=== PATIENT | male | born 1950 | race American Indian/Alaskan Native ===

== ENCOUNTER 2020-04-06 07:43 | Day surgery (SDC) | payer MEDICARE ==
[2020-04-06] MEDS ORDERED: SODIUM CHLORIDE 0.9% 500 ML 500 ML IV SCH (09:00)
[2020-04-06 09:16] LABS: Hemoglobin 14.1 gm/dl (11.8-15.2); Mean Corpuscular HGB Conc 34 % (32-34); Mean Corpuscular Volume 95 fl (84-94); Platelet Count 214 K/mm3 (140-440); Red Blood Count 4.41 M/mm3 (3.65-5.03); Red Cell Distribution Width 13.8 % (13.2-15.2)
[2020-04-06] MEDS ORDERED: fentaNYL 100 MCG/2 ML INJ ONE (09:26)
[2020-04-06] MEDS ORDERED: HEPARIN/NS 5000 UNIT/500ML 0 ML IR ONE (09:26)
[2020-04-06] MEDS ORDERED: HEPARIN 10,000 UNITS/10 ML VIAL ONE (09:26)
[2020-04-06] MEDS ORDERED: NITROGLYCERIN SYRINGE 0 ML ONE (09:27)
[2020-04-06 09:28] LABS: BUN/Creatinine Ratio 19; Blood Urea Nitrogen 15 mg/dL (9-20); Calcium 8.5 mg/dL (8.4-10.2); Hemolysis Index 2
[2020-04-06 09:40] LABS: INR 1.04 (0.87-1.13); Partial Thromboplastin Time 25.7 Sec. (24.2-36.6)
[2020-04-06] MEDS ORDERED: HEPARIN/NS 5000 UNIT/500ML 500 ML IR ONE (10:21)
[2020-04-06] MEDS ORDERED: LIDOCAINE (2%) 20 MG/1 ML VIAL 20 ML MDV INFILTRATI ONE ×2 (10:21→12:23)
[2020-04-06] MEDS ORDERED: SODIUM CHLORIDE 0.9% 500 ML 500 ML ONE (10:21)
[2020-04-06] MEDS ORDERED: MIDAZOLAM 2 MG/2 ML INJ ONE (10:22)
[2020-04-06] MEDS ORDERED: HEPARIN/NS 5000 UNIT/500ML 1,000 ML IR ONE ×2 (10:58→12:08)
[2020-04-06] MEDS: MIDAZOLAM 2 MG/2 ML INJ ONE ×5 (11:09→14:03)
[2020-04-06] MEDS: LIDOCAINE (2%) 20 MG/1 ML VIAL 20 ML MDV INFILTRATI ONE ×2 (11:11→11:53)
[2020-04-06] MEDS: fentaNYL 100 MCG/2 ML INJ ONE ×5 (11:29→14:03)
[2020-04-06] MEDS ORDERED: VERAPAMIL 5 MG/2 ML INJ ONE (11:38)
[2020-04-06] MEDS ORDERED: NITROGLYCERIN SYRINGE 3 ML ONE (11:38)
[2020-04-06] MEDS: HEPARIN 10,000 UNITS/10 ML VIAL ONE ×3 (11:58→12:49)
[2020-04-06] MEDS: VERAPAMIL 5 MG/2 ML INJ ONE ×2 (11:58→12:00)
--- NOTE | 2020-04-06 14:50 | Short Stay Summary ---
Short Stay Documentation Date of service: 04/06/20 Narrative H&P: See H&P - History H&P: obtained from office - Allergies and Medications Current Medications: Allergies penicillin Allergy (Verified 10/17/14 22:55) Hives Sulfa (Sulfonamide Antibiotics) Allergy (Verified 10/17/14 22:55) Hives Home Medications Medication Instructions Recorded Confirmed Last Taken Type traMADoL [Ultram 50 MG tab] 50 mg PO Q6HR PRN #14 tablet 11/01/14 04/06/20 04/04/20 Rx 50 mg AtorvaSTATin [Lipitor] 40 mg PO QHS 04/06/20 04/06/20 04/04/20 History 1 tab Cyproheptadine [Periactin] 4 mg PO BID 04/06/20 04/06/20 04/04/20 History 1 tab Linaclotide [Linzess] 145 mcg PO QDAY 04/06/20 04/06/20 04/05/20 History 1 tab tiZANidine [Zanaflex 4mg TAB] 4 mg PO DAILY 04/06/20 04/06/20 04/04/20 History 1 tab Active Medications Sodium Chloride (Nacl 0.9% 500 Ml) 500 mls @ 50 mls/hr IV DIRECT SPIKE - Brief post op/procedure progress note Date of procedure: 04/06/20 Pre-op diagnosis: PVD and 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 Ultrasound-Guided Access Right Common Femoral Artery 2. Ultrasound-Guided Access Left Common Femoral Artery 3. Ultrasound-Guided Access Left Radial Artery 4. Angioplasty and Stent of Infrarenal Aorta With 11 x 59 Viabahn VBX Balloon Expandable Stent Graft And 14 x 40 Jasper Balloon 5. Angioplasty and Stent of Left Common Iliac Artery with 8 x 79 Viabahn VBX and 8 x 29 Viabahn VBX Balloon Expandable Stent Grafts 6. Angioplasty and Stent of Right Common Iliac Artery with 8 x 79 Viabahn VBX and 8 x 39 Viabahn VBX Balloon Expandable Stent Grafts Postdilated with a 12 x 20 EverCross Balloon 7. Closure of Left Femoral Arteriotomy with Pro-Antimony Closure Device 8. Closure of Right Femoral Arteriotomy with Pro-Antimony Closure Device 9. Radiologic Supervision with Interpretation 10. Monitored Moderate Sedation (Total Anesthesia Time: 180 Minutes) Anesthesia: local, other (Monitored Moderate Sedation) Surgeon: DYLLAN LEWIS Automatic N[employer] Machine Operator: SANJEEV DAVIDSON Estimated blood loss: minimal Pathology: none Condition: stable - Disposition Condition at discharge: Good Disposition: DC-01 TO HOME OR SELFCARE Short Stay Discharge Plan Activity: other (No strenuous activity for 24 hours.) Wound: remove dressing (In 24 hours. Okay to shower and wash the wound with soap and water but do not soak in water for 2 weeks.) Follow up with: DYLLAN LEWIS MD [Staff Physician] - 14 Days Prescriptions: HYDROcodone/APAP 5-325 [Emerson 5/325] 1 each PO Q4HR PRN #30 tablet PRN Reason: Pain Clopidogrel [Plavix] 75 mg PO QDAY #90 tablet
[2020-04-06] MEDS ORDERED: HYDROcodone/ACETAMINOPHEN 5-325 MG TAB PO PRN (15:00)
--- NOTE | 2020-04-06 15:03 | Operative Report ---
Operative Report Operative Report: Date of Procedure: 04/06/2020 Pre-operative Diagnosis: Peripheral Vascular Disease with Aortoiliac Occlusive D isease and Aneurysmal Disease Post-operative Diagnosis: Same Procedure(s): 1. Ultrasound-Guided Access Right Common Femoral Artery 2. Ultrasound-Guided Access Left Common Femoral Artery 3. Ultrasound-Guided Access Left Radial Artery 4. Angioplasty and Stent of Infrarenal Aorta With 11 x 59 Viabahn VBX Balloon Expandable Stent Graft And 14 x 40 Lamar Balloon 5. Angioplasty and Stent of Left Common Iliac Artery with 8 x 79 Viabahn VBX and 8 x 29 Viabahn VBX Balloon Expandable Stent Grafts 6. Angioplasty and Stent of Right Common Iliac Artery with 8 x 79 Viabahn VBX and 8 x 39 Viabahn VBX Balloon Expandable Stent Grafts Postdilated with a 12 x 20 EverCross Balloon 7. Closure of Left Femoral Arteriotomy with Pro-Silsbee Closure Device 8. Closure of Right Femoral Arteriotomy with Pro-Silsbee Closure Device 9. Radiologic Supervision with Interpretation 10. Monitored Moderate Sedation (Total Anesthesia Time: 180 Minutes) Surgeon: Saul Mccall M.D. Author'S Agent: Marshal Cowan M.D. 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 He is in need of intervention to relieve his symptoms. He was given the risk, benefits, and alternative procedures and consented to the procedure. Angiographic Findings: As previously noted the aortogram reveals tapering of distal aorta with approximately 50% stenosis however there is evidence of a calcified aneurysm. His left common iliac artery is occluded with reconstitution at the distal common iliac artery just above the bifurcation. There is no evidence of flow- limiting stenosis in the hypogastric artery or external iliac artery. The the right common iliac artery has a 99% stenosis in the mid artery. The hypogastric artery and external iliac arteries are patent without evidence of flow-limiting stenosis. At the completion of the case the aorta is patent with less than 10% residual stenosis and no evidence of endoleak. The left common iliac artery is patent with less than 10% residual stenosis and brisk flow of contrast into the distal vessels. The right common iliac artery is patent however there was flow into what appears to be mural thrombus of aneurysm of the artery that was not previously noted. The flow into the distal arteries was brisk. There was less than 10% residual stenosis within the previously noted stenotic area. There was no evidence of distal emboli. Description of Procedure: The patient was brought to the [facility] and laid in supine position. After timeout was performed his bilateral groins were prepped and draped in normal sterile fashion. Ultrasound was used to identify the right common femoral artery and confirm patency. Once patency was confirmed the overlying skin and soft tissue was anesthetized with lidocaine. An 11 blade was used to make a small stab incision and then a curved hemostat was used to bluntly dissect down to the anterior surface of the artery under ultrasound guidance. A 21-gauge micropuncture needle was used ultrasound guidance to the right common femoral artery and a 0.018 micropuncture wire was advanced to the artery. The needle was removed and the micropuncture sheath was placed by Seldinger technique. The inner cannula and wire were removed and a 0.035 short J-wire was advanced into the artery. The micropuncture sheath was removed and a 5 Mosotho sheath was placed by Seldinger technique. Ultrasound was used to identify the left common femoral artery and confirm patency. Once patency was confirmed the overlying skin and soft tissue was anesthetized with lidocaine. An 11 blade was used to make a small stab incision and then a curved hemostat was used to bluntly dissect down to the anterior surface of the artery under ultrasound guidance. A 21-gauge micropuncture needle was used ultrasound guidance into the left common femoral artery and a 0.018 micropuncture wire was advanced into the artery. The micropuncture needle was removed and the micropuncture sheath was placed by Seldinger technique. The inner cannula and wire were removed and a short 0.035 J-wire was advanced. The micropuncture sheath was removed and exchanged for a 5 Mosotho sheath by Seldinger technique. At this point the patient was systemically heparinized with 5000 units of heparin IV and this was redosed with 1000 units of heparin IV every 45 minutes until the completion of the case. I then used a Navicross catheter and combination of wires and attempted to cross the area of stenosis within the right common iliac artery however I was unsuccessful. At this point Dr. Cowan scrubbed into the case to assist me. The patient's left wrist was prepped and draped in normal sterile fashion. Dr. Cowan used ultrasound to identify the left radial artery and used a micropuncture technique to access the left radial artery. He then put a 5 Mosotho glide slender sheath in the left radial artery by Seldinger technique. He admin istered a radial cocktail which consisted of heparin, nitroglycerin, and verapamil. He advanced a 0.035 Bentson wire and pigtail catheter into the thoracic aorta and cannulated the descending aorta and advanced the catheter and wire into the abdominal aorta. He then used a Navicross catheter and 0.035 advantage wire to cross the area of stenosis within the right common iliac artery and into the into the right external iliac artery which was confirmed by angiogram. I advanced a 0.035 Bentson wire into the external iliac artery and exchanged my 5 Mosotho sheath for 8 Mosotho 25 cm sheath. I then advanced an 6-10 mm Ensnare catheter and snare into the external iliac artery and was able to snare the advantage wire. The snare catheter was then advanced into the aorta and an advantage wire was advanced through the snare catheter into the aorta. A 5 x 80 EverCross balloon was then used to predilate the stenosis in the common iliac artery and then the 8 Mosotho sheath was advanced into the aorta. I used a Navicross catheter and 0.018 V18 wire and attempted to traverse the occluded left common iliac artery. I advanced the catheter and wire up to the level of the aorta however instead of the catheter and wire entering the aorta it went up and over the bifurcation and into the right external iliac artery. At this point Dr. Cowan readvanced a Navicross catheter and advantage wire back across the right common iliac artery and into the external iliac artery. I exchanged the V 18 wire for an advantage wire and then exchanged the 5 Mosotho sheath for a 8 Mosotho 25 cm sheath. I then advanced the Ensnare catheter and snare up and over the bifurcation into the right external iliac artery and was able to snare the advantage wire that was inserted from the wrist. This allowed me to advance the snare catheter into the aorta from the left iliac artery. I then advanced the sheath into the aorta. An 11 x 59 Viabahn VBX Balloon Expandable Stent Graft was chosen to place in the aorta. This was placed extending from the mid aorta to the distal aorta and the decision was made to place this through the left femoral sheath given the difficulty of crossing the left iliac artery occlu patt. I advanced it into position and then withdrew the left iliac sheath. I pulled the right iliac sheath back into the common iliac artery as well as the wire. I deployed the stent graft and then remove the delivery catheter. The stent graft was then postdilated with a 14 x 40 Lamar balloon. Attempts were made to recannulate the stent graft from the right common iliac artery however this was unsuccessful as the catheter and wire continue to go into the mural thrombus of the aneurysm sac. Dr. Cowan was able to advance the Navicross Catheter and an advantage wire through the stent graft in the aorta and to the right iliac artery and again a snare was used to snare the advantage wire and pulled the catheter into the aorta. The sheath was then readvanced into the aorta from the right femoral artery as well as advancing the 8 Mosotho sheath from the left side into the aorta. 8 x 79 Viabahn VBX Balloon Expandable Stent Grafts were advanced up each iliac arteries respectively and into the aorta with some overlap and simultaneously deployed. The follow-up angiogram revealed that extension was required on the left side to extend into the distal left common iliac artery where there was a clear dissection at the reentry point. An 8 x 29 Viabahn VBX Balloon Expandable Stent Graft was positioned just above the bifurcation and deployed. The follow-up angiogram revealed that the hypogastric and external iliac artery were both patent and there was no evidence of endoleak noted. The right common iliac artery had what appeared to be a dissection in the artery so an 8 x 39 Viabahn VBX Balloon Expandable Stent Graft was used to extend into the distal common iliac artery and this was postdilated with a 12 x 20 EverCross balloon. The follow-up angiogram revealed that there was still contrast outside of the stent graft however at this point it became apparent that the patient had aneurysmal dilatation of the common iliac artery and the flow of contrast outside of the stent graft was likely caused by channels created in the mural thrombus when trying to cross the stenosis in the midportion of the artery. I felt that this would likely thrombosed and decided not to cover his hypogastric artery at this time to seal the aneurysm. I advanced the sheath into the aorta and performed a final angiogram that revealed brisk flow of contrast through the stent grafts and into the each hypogastric and external iliac artery without evidence of distal emboli. At that point I used a Pro-glide closure device to close each entry site after removing the sheaths. Sterile dressings were then applied to the entry sites and the patient was transported to the recovery area in stable condition.
[2020-04-06] MEDS ORDERED: CLOPIDOGREL 300 MG TAB PO ONE (16:00)
[2020-04-06 16:35] VITALS: BP 132/73
== END 2020-04-06 07:44 | disposition home or self-care (01) ==
LOC: CATHLABREC 07:43
PROVIDERS: ATTEND Surgery Vascular Surgery
DX: I70.213 Atherosclerosis of native arteries of extremities with intermittent claudication, bilateral legs (principal); J44.9 Chronic obstructive pulmonary disease, unspecified; F17.210 Nicotine dependence, cigarettes, uncomplicated; E78.00 Pure hypercholesterolemia, unspecified; Z80.8 Family history of malignant neoplasm of other organs or systems; Z79.899 Other long term (current) drug therapy; Z80.1 Family history of malignant neoplasm of trachea, bronchus and lung; Z82.5 Family history of asthma and other chronic lower respiratory diseases; Z88.0 Allergy status to penicillin; Z88.2 Allergy status to sulfonamides; Z82.49 Family history of ischemic heart disease and other diseases of the circulatory system
CPT/HCPCS: 36415; 37221; 37236; 76937; 80048; 85027; 85610; 85730; 99156; 99157; C1725; C1760; C1769; C1773; C1874; C1887; C1894; J1644; J2250; J3010; J7040; Q9967

== ENCOUNTER 2020-12-07 09:22 | Day surgery (SDC) | payer MEDICARE ==
[2020-12-07 10:49] LABS: Hematocrit 40.9 % (35.5-45.6); Hemoglobin 13.9 gm/dl (11.8-15.2); Mean Corpuscular HGB Conc 34 % (32-34); Mean Corpuscular Volume 92 fl (84-94); Platelet Count 192 K/mm3 (140-440); Red Blood Count 4.47 M/mm3 (3.65-5.03); Red Cell Distribution Width 15.7 % (13.2-15.2)
[2020-12-07 11:00] LABS: INR 0.92 (0.87-1.13)
[2020-12-07] MEDS ORDERED: SODIUM CHLORIDE 0.9% 500 ML 500 ML IV SCH (11:00)
[2020-12-07] MEDS ORDERED: CLINDAMYCIN 600 MG/50 mL 600 MG/50 ML BAG IV NR (11:00)
[2020-12-07 11:07] LABS: BUN/Creatinine Ratio 14; Blood Urea Nitrogen 11 mg/dL (9-20); Calcium 8.8 mg/dL (8.4-10.2); Hemolysis Index 14
[2020-12-07] MEDS ORDERED: HEPARIN 10,000 UNITS/10 ML VIAL ONE (14:15)
[2020-12-07] MEDS ORDERED: HEPARIN/NS 5000 UNIT/500ML 1,000 ML IR ONE (14:15)
[2020-12-07] MEDS ORDERED: MIDAZOLAM 2 MG/2 ML INJ ONE (14:35)
[2020-12-07] MEDS ORDERED: fentaNYL 100 MCG/2 ML INJ ONE (14:36)
[2020-12-07] MEDS: LIDOCAINE 1%/EPINEPHRINE 1:100,000 VIAL (20 ML) INFILTRATI ONE ×3 (14:55→15:00)
[2020-12-07] MEDS ORDERED: diphenhydrAMINE 50 MG/ML VIAL ONE (14:57)
--- NOTE | 2020-12-07 16:18 | Short Stay Summary ---
Short Stay Documentation Date of service: 12/07/20 Narrative H&P: See H&P - History H&P: obtained from office - Allergies and Medications Current Medications: Allergies penicillin Allergy (Verified 10/17/14 22:55) Hives Sulfa (Sulfonamide Antibiotics) Allergy (Verified 10/17/14 22:55) Hives Home Medications Medication Instructions Recorded Confirmed Last Taken Type AtorvaSTATin [Lipitor] 40 mg PO QHS 04/06/20 12/07/20 12/06/20 History Clopidogrel [Plavix] 75 mg PO QDAY #90 tablet 04/06/20 12/07/20 12/06/20 Rx Active Medications Sodium Chloride (Nacl 0.9% 500 Ml) 500 mls @ 50 mls/hr IV DIRECT SPIKE Last Admin: 12/07/20 14:34 Dose: 200 mls Documented by: - Brief post op/procedure progress note Date of procedure: 12/07/20 Pre-op diagnosis: PVD with Stenosis of Bilateral Illiac Artery Stents Post-op diagnosis: same Procedure: 1. Ultrasound Guided Access Right Common Femoral Artery 2. Ultrasound Guided Access Left Common Femoral Artery 3. Diagnostic Left Lower Extremity Angiogram (The Patient Had a Clinical Change) 4. Diagnostic Right Lower Extremity Angiogram (The Patient Had a Clinical Change) 5. Angioplasty and Stent of Right External Iliac Artery with 12 x 40 EverCross Balloon and 12 x 60 Protg Self-Expanding Stent 6. Angioplasty and Stent of Left External Iliac Artery with 12 x 40 EverCross Balloon and 12 x 40 Protg Self-Expanding Stent 7. Closure of Bilateral Common Femoral Arteriotomies with ProGlide Closure Device 8. Radiologic Supervision with Interpretation 9. Monitored Moderate Sedation (Total Anesthesia Time: 45 Minutes) Anesthesia: local, other (Monitired Moderate Sedation) Surgeon: DYLLAN LEWIS Estimated blood loss: minimal Pathology: none Condition: stable - Disposition Condition at discharge: Good Disposition: 01 HOME / SELF CARE / HOMELESS Short Stay Discharge Plan Activity: other (No strenuous activity for 24 hours.) Wound: remove dressing (24 hours.), other (Okay to shower and was the wounds with soap and water but do not soak in water for 2 weeks.) Follow up with: DYLLAN LEWIS MD [Staff Physician] - 14 Days Prescriptions: Apixaban [Eliquis] 2.5 mg PO BID #60 tablet Pantoprazole [Protonix] 40 mg PO QDAY #90 tablet
--- NOTE | 2020-12-07 16:30 | Operative Report ---
Operative Report Operative Report: Date of Procedure: 12/07/2020 Pre-operative Diagnosis: Peripheral Vascular Disease with Failing Iliac Stent Gr afts Post-operative Diagnosis: Same Procedure(s): 1. Ultrasound Guided Access Right Common Femoral Artery 2. Ultrasound Guided Access Left Common Femoral Artery 3. Diagnostic Left Lower Extremity Angiogram (The Patient Had a Clinical Change) 4. Diagnostic Right Lower Extremity Angiogram (The Patient Had a Clinical Change) 5. Angioplasty and Stent of Right External Iliac Artery with 12 x 40 EverCross Balloon and 12 x 60 Protg Self-Expanding Stent 6. Angioplasty and Stent of Left External Iliac Artery with 12 x 40 EverCross Balloon and 12 x 40 Protg Self-Expanding Stent 7. Closure of Bilateral Common Femoral Arteriotomies with ProGlide Closure Device 8. Radiologic Supervision with Interpretation 9. Monitored Moderate Sedation (Total Anesthesia Time: 45 Minutes) Surgeon: Saul Mccall M.D. 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 He presented with severe short distance claudication and the aneurysms were treated with aortic and bilateral iliac stent graft. He presented for follow-up with lower extremity ABIs and arterial duplex that demonstrated monophasic flow within the external iliac arteries and elevated velocities distal to the stent grafts. He is in need of a diagnostic angiogram and possible intervention to prevent thrombosis of the stent graft. He was given the risk, benefits, and alternative procedures and consented to the procedures. Angiographic Findings: The diagnostic right lower extremity angiogram demonstrated the stent graft within the proximal common iliac artery was patent without evidence of thrombus or flow-limiting stenosis. There was thrombus noted within the aneurysm of the common iliac artery. There appeared to be a small blind pouch extending from the distal common iliac artery that likely represented a dissection within the mural thrombus. There was 90% stenosis of the origin of the hypogastric artery. There was approximately 75% stenosis of the proximal external iliac artery and the remainder of the external iliac artery appeared to be patent without significant flow-limiting stenosis. The left lower extremity angiogram revealed that the left common iliac artery stent graft appeared to be patent without evidence of flow-limiting stenosis. The hypogastric artery appeared to be patent without evidence of flow-limiting stenosis. There was a dissection plane within the proximal external iliac artery and extending into the mid external iliac artery with 2 flow lumens. What appeared to be the true flow lumen had approximately 90% stenosis. After intervention the right external iliac artery was patent with less than 15% residual stenosis. The left external iliac artery was patent with less than 15% residual stenosis however there was still evidence of a dissection, in the mid portion of the artery and distal to the stent, however this was not flow- limiting. Description of Procedure: The patient was brought to the [facility] and laid in supine position. After timeout was performed bilateral groins were prepped and draped in normal sterile fashion. Ultrasound was used to identify the right common femoral artery and confirm patency. Once patency was confirmed the overlying skin and soft tissue was anesthetized with lidocaine. An 11 blade was used to make a small stab incision and then a curved hemostat was used with ultrasound guidance to bluntly dissect down to the anterior surface of the right common femoral artery. A 21- gauge micropuncture needle was used ultrasound guidance to access the right common femoral artery and a 0.018 micropuncture wire was advanced to the artery. The needle was removed and a micropuncture sheath was placed by Seldinger technique. The inner cannula and wire were removed and a 0.035 Bentson wire was advanced into the artery. The micropuncture sheath was exchanged for 6 Haitian sheath by Seldinger technique. The Bentson wire continue to advance into the blind pouch within the distal common iliac artery so I used the vertebral catheter to cannulate the stent graft and advanced the catheter and wire into the aorta which was confirmed by angiogram. Of note the stent within the aorta was patent without evidence of thrombus or flow-limiting stenosis. I then used ultrasound to identify the left common femoral artery and confirm patency. Once patency was confirmed the overlying skin and soft tissue was anesthetized with lidocaine. An 11 blade was used to make a small stab incision and then a curved hemostat was used with ultrasound guidance to bluntly dissect down to the anterior surface of the left common femoral artery. A 21-gauge micropuncture needle was used with ultrasound guidance into the left common femoral artery and a 0.018 micropuncture wire was advanced to the artery. After removing the needle a micropuncture sheath was placed by Seldinger technique. The inner cannula and wire were removed and a 0.035 Bentson wire was advanced to the aorta under fluoroscopy. I then exchanged the micropuncture sheath for a 6 Haitian sheath by Seldinger technique. At this point I systemically heparinized the patient with 4000 units of heparin IV. I performed a diagnostic angiogram, through sheath injections, of both the left and right lower extremity with the previously described findings. I then advanced a 12 x 60 Protg Self-expanding Stent of the right lower extremity and into the common iliac artery. There was about 2 cm of overlap into the previously placed stent graft and I deployed the stent graft with extension into the left external iliac artery. I postdilated the stent graft in the area of stenosis with a 12 x 40 EverCross Balloon with a result of less than 15% residual stenosis and no evidence of thrombus embolizing distally. I then advanced the 12 x 40 Protg Self-expanding Stent up the left side with approximately 2 cm overlap into the previously placed stent graft and deployed it. On the initial angiogram I did not appreciate the dissection plane however upon deploying the stent the distal portion of the stent did not fully deploy, and had approximately 90% narrowing, and at that time it became obvious there was a dissection plane which was apparent on the previous films. I advanced the 12 x 40 EverCross Balloon performed angioplasty and was able to fully deploy the stent with a result of less than 15% residual stenosis and brisk flow of contrast throughout the left external iliac artery despite what appeared to be continued dissection plane. Additionally the patient had a palpable left femoral pulse with pulsatile blood through the sheath, one pulled back into the distal external iliac artery. I decided to stop the procedure at this time with the plan to have a follow-up CT scan to evaluate the anatomy in 3 months. I used a Pro-glide closure devices to close each femoral arteriotomy after removing the sheath and sterile dressings were applied to each entry site. The patient tolerated the procedure well and was transported to the recovery area in stable condition.
[2020-12-07 16:54] VITALS: BP 118/58
[2020-12-07] MEDS ORDERED: APIXABAN 2.5 MG TAB PO ONE (17:30)
== END 2020-12-07 18:00 | disposition home or self-care (01) ==
LOC: CATHLABREC 09:22
PROVIDERS: ATTEND Surgery Vascular Surgery
DX: I70.213 Atherosclerosis of native arteries of extremities with intermittent claudication, bilateral legs (principal); E78.00 Pure hypercholesterolemia, unspecified; J44.9 Chronic obstructive pulmonary disease, unspecified; F17.210 Nicotine dependence, cigarettes, uncomplicated; Z79.899 Other long term (current) drug therapy; Z98.890 Other specified postprocedural states; Z88.0 Allergy status to penicillin; Z88.2 Allergy status to sulfonamides; Z82.49 Family history of ischemic heart disease and other diseases of the circulatory system
CPT/HCPCS: 36415; 37221; 75716; 76937; 80048; 85027; 85610; 99156; 99157; C1725; C1760; C1769; C1876; C1894; J1200; J1644; J2250; J3010; J7040; Q9967